=== PATIENT | male | born 1980 | race American Indian/Alaskan Native ===

== ENCOUNTER 2020-05-26 07:28 | Day surgery (SDC) | payer OTHER ==
[2020-05-26] MEDS ORDERED: ASPIRIN EC 325 MG TAB PO NR (08:35)
[2020-05-26 09:00] LABS: Basophils % (Auto) 0.6 % (0.0-1.8); Eosinophils # (Auto) 0.3 K/mm3 (0.0-0.4); Hematocrit 43.3 % (35.5-45.6); Hemoglobin 14.3 gm/dl (11.8-15.2); Lymphocytes # (Auto) 1.8 K/mm3 (1.2-5.4); Mean Corpuscular HGB Conc 33 % (32-34); Mean Corpuscular Volume 79 fl (84-94); Monocytes # (Auto) 0.4 K/mm3 (0.0-0.8); Platelet Count 237 K/mm3 (140-440); Red Blood Count 5.47 M/mm3 (3.65-5.03); Red Cell Distribution Width 14.5 % (13.2-15.2)
[2020-05-26] MEDS ORDERED: SODIUM CHLORIDE 0.9% 500 ML 500 ML IV SCH (09:00)
[2020-05-26 09:12] LABS: INR 1.02 (0.87-1.13); Partial Thromboplastin Time 27.9 Sec. (24.2-36.6)
[2020-05-26 09:27] LABS: BUN/Creatinine Ratio 11; Blood Urea Nitrogen 11 mg/dL (9-20); Calcium 9.4 mg/dL (8.4-10.2); Hemolysis Index 4
[2020-05-26] MEDS ORDERED: HEPARIN 10,000 UNITS/10 ML VIAL ONE (10:46)
[2020-05-26] MEDS ORDERED: HEPARIN/NS 5000 UNIT/500ML 1,000 ML IR ONE (10:46)
[2020-05-26] MEDS ORDERED: NITROGLYCERIN SYRINGE 3 ML ONE (10:47)
[2020-05-26] MEDS ORDERED: LIDOCAINE (2%) 20 MG/1 ML VIAL 20 ML MDV INFILTRATI ONE (10:47)
[2020-05-26] MEDS ORDERED: fentaNYL 100 MCG/2 ML INJ ONE (10:47)
[2020-05-26] MEDS ORDERED: MIDAZOLAM 2 MG/2 ML INJ ONE (10:47)
[2020-05-26] MEDS ORDERED: VERAPAMIL 5 MG/2 ML INJ ONE (10:47)
[2020-05-26] MEDS ORDERED: HYDROcodone/ACETAMINOPHEN 5-325 MG TAB PO PRN (11:34)
--- NOTE | 2020-05-26 11:37 | Short Stay Summary ---
Short Stay Documentation Date of service: 05/26/20 - History H&P: obtained from office - Allergies and Medications Current Medications: Allergies No Known Allergies Allergy (Verified 05/26/20 08:35) Home Medications Medication Instructions Recorded Confirmed Last Taken Type Cholecalciferol (Vitamin D3) 125 mcg PO DAILY 05/26/20 05/26/20 05/25/20 History [Vitamin D3] 125 mcg Fluticasone [Flonase] 1 spray INNOSTRIL BID 05/26/20 05/26/20 05/25/20 History 2 Omega3/Dha/Epa/Fish Oil/Vit D3 1 tab PO DAILY 05/26/20 05/26/20 05/25/20 History 1 Valsartan [Diovan] 320 mg PO DAILY 05/26/20 05/26/20 05/25/20 History 320 mg Zinc Sulfate [Zinc-15] 1 tab PO DAILY 05/26/20 05/26/20 05/25/20 History 1 amLODIPine 10 mg PO DAILY 05/26/20 05/26/20 05/25/20 History 10 mg hydroCHLOROthiazide 12.5 mg PO DAILY 05/26/20 05/26/20 Unknown History [Hydrochlorothiazide] Active Medications Sodium Chloride (Nacl 0.9% 500 Ml) 500 mls @ 50 mls/hr IV DIRECT KHURRAM Stop: 05/26/20 18:59 Last Admin: 05/26/20 09:29 Dose: 50 mls/hr Documented by: - Brief post op/procedure progress note Date of procedure: 05/26/20 Pre-op diagnosis: cp Post-op diagnosis: same Procedure: see report normal coronaries and normal lv function Anesthesia: local Estimated blood loss: minimal Pathology: none - Disposition Condition at discharge: Good Disposition: [id number] TO HOME OR SELFCARE - Discharge Diagnoses (1) Hypertension Status: Chronic Qualifiers: Hypertension type: essential hypertension Qualified Code(s): I10 - Essential (primary) hypertension (2) Chest pain Status: Chronic Qualifiers: Chest pain type: unspecified Qualified Code(s): R07.9 - Chest pain, unspecified (3) Abnormal stress ECG with treadmill Status: Resolved Short Stay Discharge Plan Activity: advance as tolerated Diet: regular, low cholesterol Wound: keep clean and dry Follow up with: DIVYA WYNNE MD [Primary Care Provider] - 7 Days
[2020-05-26] MEDS ORDERED: traMADol 50 MG TAB PO PRN (12:00)
[2020-05-26 14:24] VITALS: BP 139/82
--- NOTE | 2020-05-26 15:42 | Cardiac Catherization Report ---
LEFT HEART CATHETERIZATION ORDERING PHYSICIAN: Dr. Austin Banda. CLINICAL INFORMATION: This is a left heart catheterization being done for a 40-year-old patient with persistent chest pain with abnormal treadmill stress test done with moderate sedation started at 11:00, finished at 11:20, 20 minutes of moderate sedation. Left heart catheterization performed via the right radial artery, sterile technique, local anesthesia, 6-[place] radial sheath inserted. Left system, JL3.5 catheter. Left main is a large vessel, patent, normal, bifurcates into large LAD, is patent. Diagonal 1 is a large caliber vessel, patent. Circumflex is a large caliber vessel, goes a large OM1, is patent. RCA is a large dominant vessel, is patent. PDA, PLV are medium caliber vessels that are patent. LV gram done in [place] and CACERES shows normal LV function. LVP 23 mmHg, LV is 134. Aortic is 134/89. No gradient across the aortic valve on pullback. 5-[place]re[place] catheters all taken over guidewire, 6-[place]re[place] radial sheath were discontinued. Radial band applied. No hematoma, no bleeding. SUMMARY: Left main patent, LAD patent, diagonal patent, circ patent, OM1 patent, RCA large, dominant, patent, normal coronaries with normal LV function. Discussed this with the patient and the patient's family. Noncardiac chest pain. JOB# [id number] GAMA/ARUNA MARTELL
== END 2020-05-26 15:00 | disposition home or self-care (01) ==
LOC: CATHLABREC 07:28
PROVIDERS: ATTEND Internal Medicine
DX: R07.89 Other chest pain (principal); R94.39 Abnormal result of other cardiovascular function study; I10 Essential (primary) hypertension; Z87.442 Personal history of urinary calculi; Z79.899 Other long term (current) drug therapy; Z87.891 Personal history of nicotine dependence; Z80.8 Family history of malignant neoplasm of other organs or systems; Z98.890 Other specified postprocedural states
CPT/HCPCS: 36415; 80048; 85025; 85610; 85730; 93005; 93458; 99156; C1894; J1644; J2250; J3010; J7040; Q9967